=== PATIENT | male | born 1955 | race Caucasian/White ===

== ENCOUNTER 2017-03-11 01:37 | Emergency (ER) ==
[2017-03-11 01:37] VITALS: BMI 23.1
[2017-03-11 02:01] VITALS: BP 157/91; TEMP 98.8
[2017-03-11] MEDS ORDERED: CLEOCIN 600 MG in SODIUM CHLORIDE 100 ML IV STA (02:16)
[2017-03-11] MEDS ORDERED: ZANTAC PO STA (02:17)
[2017-03-11 02:27] LABS: BASOPHILS % (AUTO) 0.4 % (0.0-3.0); EOSINOPHILS # (AUTO) 0.2 K/ul (0.0-0.7); EOSINOPHILS % (AUTO) 1.9 % (0.0-7.0); HEMATOCRIT 38.9 % (42.0-52.0); HEMOGLOBIN 12.6 g/dl (14.0-18.0); IMMATURE GRANULOCYTE % (AUTO) 0.4 % (0.0-5.0); LYMPHOCYTES # (AUTO) 2.2 K/uL (0.60-3.4); LYMPHOCYTES % (AUTO) 27.6 (10.0-50.0); MEAN CORPUSCULAR HEMOGLOBIN 24.1 pg (27.0-31.0); MEAN CORPUSCULAR HGB CONC 32.4 (31.8-35.4); MEAN CORPUSCULAR VOLUME 74.4 fl (80.0-94.0); MONOCYTES # (AUTO) 0.7 K/uL (0.4-2.0); MONOCYTES % (AUTO) 9.2 (0-10); NEUTROPHILS # (AUTO) 4.9 K/ul (2.0-6.9); NEUTROPHILS % (AUTO) 60.5; PLATELET COUNT 311 10^3/uL (140-440); RED BLOOD COUNT 5.23 10^6/ul (4.70-6.10); WHITE BLOOD COUNT 8.01 K/ul (4.2-10.2)
[2017-03-11] MEDS ORDERED: CLEOCIN ONE ×2 (02:35→05:51)
[2017-03-11 02:44] LABS: BILIRUBIN,URINE 1+ (NEGATIVE); KETONES,URINE Negative (NEGATIVE); LEUKOCYTE ESTERASE ,URINE Negative (NEGATIVE); NITRITE,URINE Negative (NEGATIVE); PH,URINE 5.5 (5-9); PROTEIN,URINE 2+ (NEGATIVE); URINE, BLOOD 3+ (NEGATIVE)
[2017-03-11 02:50] LABS: ADD URINE MICROSCOPIC YES
[2017-03-11 03:06] LABS: ALBUMIN 3.5 g/dL (3.4-5.0); ALBUMIN/GLOBULIN RATIO 1.06; ANION GAP 12.8; BILIRUBIN,TOTAL 0.44 mg/dL (0.00-1.20); BUN/CREATININE RATIO 12.24; CALCIUM 9.1 mg/dL (8.2-10.2); CREATININE 1.47 mg/dL (0.60-1.10); POTASSIUM 3.8 mmol/L (3.5-5.1); TOTAL PROTEIN 6.8 g/dL (5.8-8.1)
--- NOTE | 2017-03-11 03:55 | CT ---
EXAM: CT abdomen pelvis without intravenous contrast 03/11/2017. Sagittal and coronal reformatted images HISTORY: Hematuria COMPARISON: 02/20/2014 FINDINGS: The previously described hepatic cysts appear stable. The liver shows no acute abnormalit y. The gallbladder has been removed. The adrenal glands and kidneys show no acute abnormality. Nonobstructive nephrolithiasis measures u p to 3 mm diameter. No hydronephrosis. No obstructing ureteral stone. Unremarkable urinary bladder. The spleen and pancreas show no acute abnormality. The bowel obstruction. Appendix not identified. No secondary signs of appendicitis. No free air or free fluid. IMPRESSION: No acute inflammatory process identified within the abdomen or pelvis within the limita tion of a noncontrast enhanced examination.
--- NOTE | 2017-03-11 06:07 | ED.PDOC ---
General ED Provider: Dr. NELSON JO-ER Chief Complaint: Extremity Swelling/Pain Stated Complaint: my legs are swollen=--thsi has happened befoere Time Seen by Physician: 01:40 Mode of Arrival: Walk-In Information Source: Patient Exam Limitations: No limitations Primary Care Provider: AXEL GAUTAM Nursing and Triage Documentation Reviewed and Agree: Yes Skin Complaint Exam - Skin/Soft Tissue Complaint/Exam Onset/Duration: several days Symptoms Are: Still present Initial Severity: Mild Current Severity: Mild Location: bilateral legs Character: Reports: Redness, Swelling. Denies: Raised, Painful Aggravating: Reports: None Alleviating: Reports: None Associated Signs and Symptoms: Reports: Red streaks. Denies: Fever, Chills, Itching, Drainage, Bruising, Tenderness, Joint swelling Related History: Reports: Similar episode Related Surgical History: Reports: None Recent Exposure to Others w/Similar Symptoms: No Skin Findings: Present: Erythema Differential Diagnoses: Cellulitis, Other Review of Systems - Review Of Systems Constitutional: Reports: No symptoms Eyes: Reports: No symptoms Ears, Nose, Mouth, Throat: Reports: No symptoms Respiratory: Reports: No symptoms Cardiac: Reports: No symptoms GI: Reports: No symptoms : Reports: No symptoms Musculoskeletal: Reports: No symptoms Skin: Reports: Rash Neurological: Reports: No symptoms Endocrine: Reports: No symptoms Hematologic/Lymphatic: Reports: No symptoms All Other Systems: Reviewed and Negative Past Medical History - Past Medical History Previously Healthy: Yes Endocrine: Reports: None Cardiovascular: Reports: None Respiratory: Reports: None Hematological: Reports: None Gastrointestinal: Reports: GERD Genitourinary: Reports: None Neuro/Psych: Reports: Anxiety, Depression Musculoskeletal: Reports: None Cancer: Reports: None - Surgical History General Surgical History: Reports: Cholecystectomy, Other (stretched esophagus x3 cataracts ) - Family History Family History: Reports: Unknown - Social History Smoking Status: Never smoker Hx Substance Use: No Alcohol Screening: None Lives: With family - Immunizations Tetanus Shot up to Date: Yes Physical Exam - Physical Exam Appearance: Well-appearing, No pain distress, Well-nourished Eyes: TRISHA, EOMI, Conjunctiva clear ENT: Ears normal, Nose normal, Oropharynx normal Neck: Supple Respiratory: Airway patent, Breath sounds clear, Breath sounds equal, Respirations nonlabored Cardiovascular: RRR, Pulses normal, No rub, No murmur GI/: Soft, Nontender, No masses, Bowel sounds normal, No Organomegaly Musculoskeletal: Normal strength, ROM intact, No edema, No calf tenderness Skin: Warm, Dry, Normal color Neurological: Sensation intact, Motor intact, Reflexes intact, Cranial nerves intact, Alert, Oriented Psychiatric: Affect appropriate, Mood appropriate Interpretation - Radiology Interpretation Radiology Interpretation By: Radiologist Exam Interpreted: CT Scan Critical Care Note - Critical Care Note Total Time (mins): 0 Course - Course Hematology/Chemistry: 03/11/17 02:20 03/11/17 02:20 Orders, Labs, Meds: Lab Review 03/11/17 03/11/17 02:20 02:40 WBC 8.01 RBC 5.23 Hgb 12.6 L Hct 38.9 L MCV 74.4 L MCH 24.1 L MCHC 32.4 RDW Coeff of [place] 17.2 H Plt Count 311 Immature Gran % (Auto) 0.4 Neut % (Auto) 60.5 Lymph % (Auto) 27.6 [place] % (Auto) 9.2 Eos % (Auto) 1.9 Baso % (Auto) 0.4 Immature Gran # (Auto) 0.0 Neut # 4.9 Lymph # 2.2 [place] # 0.7 Eos # 0.2 Baso # 0.0 D-Dimer (Manual) 715.44 Sodium 138 Potassium 3.8 Chloride 105 Carbon Dioxide 24 Anion Gap 12.8 BUN 18 Creatinine 1.47 H Estimated GFR (MDRD) 49.00 BUN/Creatinine Ratio 12.24 Glucose 109 Calcium 9.1 Total Bilirubin 0.44 AST 33 ALT 27 Alkaline Phosphatase 93 Total Protein 6.8 Albumin 3.5 Globulin 3.3 Albumin/Globulin Ratio 1.06 TSH 3.345 Urine Color Dark Urine Clarity Cloudy Urine pH 5.5 Ur Specific [place] >=1.030 Urine Protein 2+ Urine Glucose (UA) Trace Urine Ketones Negative Urine Blood 3+ Urine Nitrite Negative Urine Bilirubin 1+ Urine Urobilinogen 0.2 Ur Leukocyte Esterase Negative Urine Microscopic RBC 50-100 Urine Microscopic WBC 2-5 Ur Squamous Epith Cells Not present Urine Mucus Trace Orders Category Date Time Status Bladder [ED BLADDER SCAN] .ONCE EMERGENCY 03/11/17 03:15 Active IV [ED IV/MEDIPORT/POWERPORT] .ONCE EMERGENCY 03/11/17 02:16 Active BLOOD CULTURE Stat LAB 03/11/17 02:20 Received CBC W/ AUTO DIFF Stat LAB 03/11/17 02:20 Completed COMPREHENSIVE METABOLIC PANEL Stat LAB 03/11/17 02:20 Completed D-DIMER Stat LAB 03/11/17 02:20 Completed TSH [THYROID STIMULATING HORMONE] Stat LAB 03/11/17 02:20 Completed URINALYSIS C & S IF INDICATED Stat LAB 03/11/17 02:40 Completed 0.9 % Sodium Chloride [Saline Flush] MEDS 03/11/17 02:16 Ordered 1 syr IVF PRN PRN Clindamycin Phosphate Inj [Cleocin] MEDS 03/11/17 02:35 Discontinued 300 mg .ROUTE .STK-MED ONE Clindamycin Phosphate Inj [Cleocin] MEDS 03/11/17 05:51 Discontinued 300 mg .ROUTE .STK-MED ONE Clindamycin Phosphate Inj [Cleocin] 600 mg MEDS 03/11/17 02:16 Discontinued 0.9 % Sodium Chloride [Sodium Chloride] 100 ml IV NOW Ranitidine HCl [Zantac] MEDS 03/11/17 02:17 Discontinued 150 mg PO ONCE STA CT ABDOMEN/PELVIS WO CONTRAST Stat RADS 03/11/17 03:19 Completed Medications Generic Name Dose Route Start Last Admin Trade Name Freq PRN Reason Stop Dose Admin Sodium Chloride 1 syr 03/11/17 02:16 03/11/17 02:55 Saline Flush IVF 1 syr PRN PRN Administration To flush IV Discontinued Medications Generic Name Dose Route Start Last Admin Trade Name Freq PRN Reason Stop Dose Admin Clindamycin Phosphate 600 mg/ 104 mls @ 100 mls/hr 03/11/17 02:16 03/11/17 02 :54 Sodium Chloride IV 03/11/17 03:18 100 mls/hr NOW STA Administration Ranitidine HCl 150 mg 03/11/17 02:17 03/11/17 02:47 Zantac PO 03/11/17 02:18 150 mg ONCE STA Administration Vital Signs: Temp Pulse Resp BP Pulse Ox 03/11/17 01:38 98.8 F 70 18 157/91 H 98 Departure - Departure Time of Disposition: 06:07 Disposition: HOME SELF-CARE Discharge Problem: Edema of lower extremity, CKD (chronic kidney disease) stage 3, GFR 30-59 ml/ min Proteinuria Qualifiers: Proteinuria type: other Qualifier Code: (R80.8) Other proteinuria Hematuria Qualifiers: Hematuria type: unspecified type Qualifier Code: (R31.9) Hematuria, unspecified Instructions: Hematuria (ED) Condition: Good Pt referred to PMD for follow-up: Yes Additional Instructions: keflex 500mg qid x 7 anita--sean you have blood and protein in your urine--you need to see a water sander and a urologist--have your doctor refer you Allergies/Adverse Reactions: Allergies No Known Allergies Allergy (Verified 03/11/17 01:50) Home Medications: Ambulatory Orders Citalopram Hydrobromide [Citalopram HBr] 20 mg PO DAILY 02/20/14 Ranitidine HCl 300 mg PO BID 02/20/14 Naproxen 500 mg PO BID 09/07/15 Disposition Discussed With: Patient
== END 2017-03-11 06:24 | disposition home or self-care (01) ==
LOC: ED 01:37
DX: R60.0 Localized edema (principal); N18.3 Chronic kidney disease, stage 3 (moderate); R80.8 Other proteinuria; R31.9 Hematuria, unspecified
CPT/HCPCS: 36415; 80053; 81001; 84443; 85025; 85379; 87040; 96365; 99283

== ENCOUNTER 2021-11-27 07:49 | Inpatient (IN) ==
[2021-11-27] MEDS ORDERED: SODIUM CHLORIDE 1,000 ML IV STA ×2 (07:55→09:01)
[2021-11-27] MEDS ORDERED: ZOFRAN 4 MG/2 ML IVP ONE (07:55)
--- NOTE | 2021-11-27 08:00 | ED.PDOC ---
General ED Provider: Dr. NICOLE TOWNSEND MD Chief Complaint: Weakness Stated Complaint: mild to mod general weakness for one day, no injury, +nausea, no emesis, no chest pain, hx gerd and covid vaccine, no dm, mi or htn Time Seen by Provider: 11/27/21 07:54 Primary Care Provider: AXEL GAUTAM Nursing and Triage Documentation Reviewed and Agree: Yes Does patient meet sepsis criteria?: No System Inflammatory Response Syndrome: Not Applicable Sepsis Protocol: For patient's 13 years and over: Temp is 96.8 and below OR 101 and greater Pulse >90 BPM Resp >20/minute Acutely Altered Mental Status Are patient's symptoms suggestive of a new infection, such as: -Pneumonia -Skin, Soft Tissue -Endocarditis -UTI -Bone, Joint Infection -Implantable Device -Acute Abdominal Infection -Wound Infection -Meningitis -Blood Stream Catheter Infection -Unknown Review of Systems Review Of Systems Constitutional: Reports Malaise; Denies Fever Eyes: Denies Vision change Ears, Nose, Mouth, Throat: Denies Throat pain Respiratory: Denies Short of air Cardiac: Denies Chest pain GI: Denies Abdominal pain : Denies Dysuria Musculoskeletal: Denies Back pain Skin: Denies Bruising Neurological: Denies Cognitive dysfunction All Other Systems: Other [facility] Social History Smoking and tobacco status: Never smoker Substance use type: does not use Physical Exam Physical Exam Appearance: Reports No pain distress Ill-appearing: None Pain Distress: None Eyes: Reports TRISHA, EOMI and Conjunctiva clear ENT: Reports Oropharynx normal Neck: Supple Respiratory: Reports Airway patent, Breath sounds clear and Breath sounds equal Cardiovascular: Reports RRR GI/: Reports Soft and Nontender Musculoskeletal: Reports ROM intact Skin: Reports Warm and Dry Neurological: Reports Alert and Oriented Psychiatric: Reports Affect appropriate Interpretation Radiology Interpretation Radiology Interpretation By: Radiologist Exam Interpreted: CXR Xray Comments: nap EKG Interpretation Time of EKG #1: 11:28 Rate: Tachy Rhythm: Sinus Interpretation: nsst, no stemi Critical Care Note Critical Care Note Total Critical Care Time (mins): 0 Course Course Hematology/Chemistry: 11/27/21 08:09 11/27/21 08:09 Orders, Labs, Meds: Lab Review 11/27/21 11/27/21 11/27/21 08:04 08:09 08:09 WBC 16.81 H RBC 6.94 H Hgb 12.7 L Hct 43.6 MCV 62.8 L MCH 18.3 L MCHC 29.1 L RDW Coeff of [place] 20.8 H Plt Count 464 H Immature Gran % (Auto) 0.4 Neut % (Auto) 84.0 H Lymph % (Auto) 9.2 L [place] % (Auto) 6.1 Eos % (Auto) 0.1 Baso % (Auto) 0.2 Neut # (Auto) 14.1 H Lymph # (Auto) 1.5 [place] # (Auto) 1.0 Eos # (Auto) 0.0 Baso # (Auto) 0.0 Immature Gran # (Auto) 0.1 Sodium 136.8 Potassium 4.26 Chloride 101.5 Carbon Dioxide 20.6 L Anion Gap 18.96 BUN 21.3 H Creatinine 2.32 H Estimated GFR (MDRD) 28.00 BUN/Creatinine Ratio 9.18 Glucose 199.2 H Lactic Acid Calcium 9.49 Total Bilirubin 1.01 AST 30.3 ALT 25.3 Alkaline Phosphatase 134.9 H Total Creatine Kinase CK-MB (CK-2) CK-MB (CK-2) % Troponin I < 0.012 Total Protein 9.10 H Albumin 5.10 H Globulin 4.00 Albumin/Globulin Ratio 1.27 Urine Color Urine Clarity Urine pH Ur Specific [place] Urine Protein Urine Glucose (UA) Urine Ketones Urine Blood Urine Nitrite Urine Bilirubin Urine Urobilinogen Ur Leukocyte Esterase Ur Squamous Epith Cells Hyaline Casts Urine Mucus Urine Opiates Screen Ur Oxycodone Screen Urine Methadone Screen Ur Propoxyphene Screen Ur Barbiturates Screen U Tricyclic Antidepress Ur Phencyclidine Scrn Ur Amphetamine Screen U Methamphetamines Scrn U Benzodiazepines Scrn Urine Cocaine Screen U Cannabinoids Screen Influ A Molecular Assay Negative by naat Influ B Molecular Assay Negative by naat SARS CoV-2 RNA Rapid FILEMON 11/27/21 11/27/21 11/27/21 08:09 08:09 09:11 WBC RBC Hgb Hct MCV MCH MCHC RDW Coeff of [place] Plt Count Immature Gran % (Auto) Neut % (Auto) Lymph % (Auto) [place] % (Auto) Eos % (Auto) Baso % (Auto) Neut # (Auto) Lymph # (Auto) [place] # (Auto) Eos # (Auto) Baso # (Auto) Immature Gran # (Auto) Sodium Potassium Chloride Carbon Dioxide Anion Gap BUN Creatinine Estimated GFR (MDRD) BUN/Creatinine Ratio Glucose Lactic Acid 2.54 H Calcium Total Bilirubin AST ALT Alkaline Phosphatase Total Creatine Kinase 206.3 H CK-MB (CK-2) 2.070 CK-MB (CK-2) % 1.0000 Troponin I Total Protein Albumin Globulin Albumin/Globulin Ratio Urine Color Urine Clarity Urine pH Ur Specific [place] Urine Protein Urine Glucose (UA) Urine Ketones Urine Blood Urine Nitrite Urine Bilirubin Urine Urobilinogen Ur Leukocyte Esterase Ur Squamous Epith Cells Hyaline Casts Urine Mucus Urine Opiates Screen Ur Oxycodone Screen Urine Methadone Screen Ur Propoxyphene Screen Ur Barbiturates Screen U Tricyclic Antidepress Ur Phencyclidine Scrn Ur Amphetamine Screen U Methamphetamines Scrn U Benzodiazepines Scrn Urine Cocaine Screen U Cannabinoids Screen Influ A Molecular Assay Influ B Molecular Assay SARS CoV-2 RNA Rapid FILEMON Negative 11/27/21 11/27/21 09:17 09:17 WBC RBC Hgb Hct MCV MCH MCHC RDW Coeff of [place] Plt Count Immature Gran % (Auto) Neut % (Auto) Lymph % (Auto) [place] % (Auto) Eos % (Auto) Baso % (Auto) Neut # (Auto) Lymph # (Auto) [place] # (Auto) Eos # (Auto) Baso # (Auto) Immature Gran # (Auto) Sodium Potassium Chloride Carbon Dioxide Anion Gap BUN Creatinine Estimated GFR (MDRD) BUN/Creatinine Ratio Glucose Lactic Acid Calcium Total Bilirubin AST ALT Alkaline Phosphatase Total Creatine Kinase CK-MB (CK-2) CK-MB (CK-2) % Troponin I Total Protein Albumin Globulin Albumin/Globulin Ratio Urine Color [place] Urine Clarity Slightly Urine pH 5.5 Ur Specific [place] >=1.030 Urine Protein 2+ H Urine Glucose (UA) 1+ H Urine Ketones 1+ H Urine Blood Negative Urine Nitrite Negative Urine Bilirubin 2+ H Urine Urobilinogen 0.2 Ur Leukocyte Esterase Negative Ur Squamous Epith Cells Not Reportable Hyaline Casts 10-20 Urine Mucus 3+ Urine Opiates Screen Negative Ur Oxycodone Screen Negative Urine Methadone Screen Negative Ur Propoxyphene Screen Negative Ur Barbiturates Screen Negative U Tricyclic Antidepress Negative Ur Phencyclidine Scrn Negative Ur Amphetamine Screen Negative U Methamphetamines Scrn Negative U Benzodiazepines Scrn Negative Urine Cocaine Screen Negative U Cannabinoids Screen Negative Influ A Molecular Assay Influ B Molecular Assay SARS CoV-2 RNA Rapid FILEMON Orders Category Date Time Status EKG-(ED ONLY) Stat CARDIO 11/27/21 07:55 Completed BLOOD CULTURE Stat LAB 11/27/21 09:25 Received CBC W/ AUTO DIFF Stat LAB 11/27/21 08:09 Completed CMP [COMPREHENSIVE METABOLIC PANEL] Stat LAB 11/27/21 08:09 Completed COVID [SARS COV-2 RNA RAPID FILEMON] Stat LAB 11/27/21 09:11 Completed CPK [CREATINE KINASE] Stat LAB 11/27/21 08:09 Completed DRUG SCREEN, URINE, RAPID Stat LAB 11/27/21 09:17 Completed LACTIC ACID Stat LAB 11/27/21 08:09 Completed MOLECULAR FLU A & B [FLU A/B MOLECULAR] Stat LAB 11/27/21 08:04 Completed TROPONIN I Stat LAB 11/27/21 08:09 Completed URINALYSIS C & S IF INDICATED Stat LAB 11/27/21 09:17 Completed Ondansetron HCl/Pf [Zofran 4 mg/2 ml] MEDS 11/27/21 07:55 Discontinued 4 mg IVP ONCE ONE Pantoprazole Sodium [Protonix IV] MEDS 11/27/21 11:07 Discontinued 40 mg IVP ONCE ONE Piperacillin Sodium/Tazobactam [Zosyn 3.375 gm] 3.375 MEDS 11/27/21 09:01 Discontinued gm 0.9 % Sodium Chloride [Sodium Chloride] 50 ml IV ONCE Sodium Chloride 0.9% [Sodium Chloride] 1,000 ml MEDS 11/27/21 07:55 Discontinued IV BOLUS Sodium Chloride 0.9% [Sodium Chloride] 1,000 ml MEDS 11/27/21 09:01 Discontinued IV BOLUS CHEST, 1V AP ONLY Stat RADS 11/27/21 07:55 Completed Medications Discontinued Medications Generic Name Dose Route Start Last Admin Trade Name Freq PRN Reason Stop Dose Admin Sodium Chloride 1,000 mls @ 1,000 mls/hr 11/27/21 07:55 11/27/21 08:48 Sodium Chloride IV 11/27/21 08:54 1,000 mls/hr BOLUS STA Administration Sodium Chloride 1,000 mls @ 1,000 mls/hr 11/27/21 09:01 11/27/21 10:01 Sodium Chloride IV 11/27/21 10:00 1,000 mls/hr BOLUS STA Administration Piperacillin Sod/Tazobactam 50 mls @ 50 mls/hr 11/27/21 09:01 11/27/21 10:01 Sod 3.375 gm/ Sodium Chloride IV 11/27/21 10:00 50 mls/hr ONCE ONE Administration Ondansetron HCl 4 mg 11/27/21 07:55 11/27/21 08:49 Ondansetron Hcl/Pf 4 Mg/2 Ml Sdv IVP 11/27/21 07:56 4 mg ONCE ONE Administration Pantoprazole Sodium 40 mg 11/27/21 11:07 Pantoprazole Sodium 40 Mg Vial IVP 11/27/21 11:08 ONCE ONE Vital Signs: Temp Pulse Resp BP Pulse Ox 11/27/21 07:50 97.8 F 109 H 17 135/86 97 Discharge Plan Discharge Patient Disposition: ADMITTED INPATIENT Discharge Problem: Rhabdomyolysis, Weakness, Dehydration Prescriptions: No Action omeprazole [Prilosec] 20 mg Capsule,Delayed Release(Dr/Ec) 20 mg PO DAILY 0RF ED Provider: NICOLE TOWNSEND Condition: Fair Physician Progress Note: []differential includes dehydration, viral syndrome, mild rhabdomyolysis, sepsis, pt admit to tele inpatient to hospitalist
[2021-11-27 08:24] LABS: BASOPHILS % (AUTO) 0.2 % (0.0-3.0); EOSINOPHILS % (AUTO) 0.1 % (0.0-7.0); HEMATOCRIT 43.6 % (42.0-52.0); HEMOGLOBIN 12.7 g/dl (14.0-18.0); IMMATURE GRANULOCYTE # (AUTO) 0.1 (0.0-1.0); IMMATURE GRANULOCYTE % (AUTO) 0.4 % (0.0-5.0); LYMPHOCYTES # (AUTO) 1.5 K/uL (0.60-3.4); LYMPHOCYTES % (AUTO) 9.2 (10.0-50.0); MEAN CORPUSCULAR HEMOGLOBIN 18.3 pg (27.0-31.0); MEAN CORPUSCULAR HGB CONC 29.1 (31.8-35.4); MEAN CORPUSCULAR VOLUME 62.8 fl (80.0-94.0); MONOCYTES % (AUTO) 6.1 (0-10); NEUTROPHILS # (AUTO) 14.1 K/ul (2.0-6.9); PLATELET COUNT 464 10^3/uL (140-440); RDW COEFFICIENT OF VARIATION 20.8 % (11.6-14.8); RED BLOOD COUNT 6.94 10^6/ul (4.70-6.10); WHITE BLOOD COUNT 16.81 K/ul (4.2-10.2)
[2021-11-27 08:35] LABS: ALANINE AMINOTRANSFERASE 25.3 U/L (0-50); ALKALINE PHOSPHATASE 134.9 U/L (56-119); ASPARTATE AMINO TRANSFERASE 30.3 U/L (17-59); BILIRUBIN,TOTAL 1.01 mg/dL (0.2-1.3); BLOOD UREA NITROGEN 21.3 mg/dL (9-20); CALCIUM 9.49 mg/dL (8.4-10.2); CARBON DIOXIDE 20.6 mmol/L (22-30.0); CHLORIDE 101.5 mmol/L (98-107); CREATININE 2.32 mg/dL (0.60-1.10); GLUCOSE 199.2 mg/dL (74-106); POTASSIUM 4.26 mmol/L (3.5-5.1); SODIUM 136.8 mmol/L (134.5-145)
[2021-11-27 08:49] LABS: TROPONIN I < 0.012 ng/ml (0.0000-0.120)
--- NOTE | 2021-11-27 08:53 | DI ---
EXAM: One-view chest HISTORY: Weak TECHNIQUE: Single frontal view the chest was obtained. FINDINGS: The heart is normal size. Lungs are clear. The costophrenic as a sharp. The osseous str uctures and mediastinal contours are normal. IMPRESSION: No active cardiopulmonary disease.
[2021-11-27 08:55] LABS: CREATINE KINASE 206.3 U/L (55-170)
[2021-11-27 08:57] LABS: MOLECULAR FLU A NEGATIVE BY NAAT (NEGATIVE); MOLECULAR FLU B NEGATIVE BY NAAT (NEGATIVE)
[2021-11-27] MEDS ORDERED: ZOSYN 3.375 GM 3.375 GM in SODIUM CHLORIDE 50 ML IV ONE (09:01)
[2021-11-27 09:11] LABS: CREATINE KINASE MB 2.07 ng/ml (0.0-2.38)
[2021-11-27 09:43] LABS: BILIRUBIN,URINE 2+ (NEGATIVE); CLARITY,URINE Slightly (CLEAR); COLOR,URINE Orange (YELLOW); GLUCOSE, URINE (UA) 1+ (NEGATIVE); KETONES,URINE 1+ (NEGATIVE); LEUKOCYTE ESTERASE ,URINE Negative (NEGATIVE); NITRITE,URINE Negative (NEGATIVE); PH,URINE 5.5 (5-9); PROTEIN,URINE 2+ (NEGATIVE); URINE, BLOOD Negative (NEGATIVE); UROBILINOGEN,URINE 0.2 (0.2)
[2021-11-27 10:03] LABS: AMPHETAMINE SCREEN,URINE NEGATIVE (NEGATIVE); BARBITURATE SCREEN,URINE NEGATIVE (NEGATIVE); METHAMPHETAMINES SCREEN,URINE NEGATIVE (NEGATIVE); OPIATE SCREEN,URINE NEGATIVE (NEGATIVE); PHENCYCLIDINE SCREEN,URINE NEGATIVE (NEGATIVE)
[2021-11-27 10:04] LABS: BENZODIAZEPINES SCREEN,URINE NEGATIVE (NEGATIVE); CANNABINOID SCREEN,URINE NEGATIVE (NEGATIVE); COCAIN SCREEN,URINE NEGATIVE (NEGATIVE); METHADONE URINE SCREEN NEGATIVE (NEGATIVE); OXYCODONE URINE SCREEN NEGATIVE (NEGATIVE); PROPOXYPHENE URINE SCREEN NEGATIVE (NEGATIVE); TRICYCLIC ANTIDEPRESSANTS URIN NEGATIVE (NEGATIVE)
[2021-11-27 10:05] LABS: MUCUS,URINE 3+ (NOT PRESENT)
[2021-11-27] MEDS ORDERED: PROTONIX IV IVP ONE (11:07)
[2021-11-27] MEDS ORDERED: TYLENOL PO PRN (11:31)
[2021-11-27] MEDS: SODIUM CHLORIDE 1,000 ML IV SCH ×2 (12:36→14:10)
[2021-11-27 13:35] VITALS: BMI 25.9
[2021-11-27] MEDS: ZOSYN 3.375 GM 3.375 GM in SODIUM CHLORIDE 50 ML IV SCH ×2 (17:22→23:16)
[2021-11-27 17:49] LABS: CREATINE KINASE 411.1 U/L (55-170)
[2021-11-27 18:03] LABS: TROPONIN I < 0.012 ng/ml (0.0000-0.120)
[2021-11-28 02:08] LABS: BASOPHILS # (AUTO) 0.1 K/uL (0-0.2); BASOPHILS % (AUTO) 0.5 % (0.0-3.0); EOSINOPHILS # (AUTO) 0.2 K/ul (0.0-0.7); EOSINOPHILS % (AUTO) 1.5 % (0.0-7.0); HEMATOCRIT 33.7 % (42.0-52.0); HEMOGLOBIN 10.1 g/dl (14.0-18.0); IMMATURE GRANULOCYTE # (AUTO) 0.1 (0.0-1.0); IMMATURE GRANULOCYTE % (AUTO) 0.4 % (0.0-5.0); LYMPHOCYTES # (AUTO) 2.2 K/uL (0.60-3.4); LYMPHOCYTES % (AUTO) 16.7 (10.0-50.0); MEAN CORPUSCULAR HEMOGLOBIN 18.7 pg (27.0-31.0); MEAN CORPUSCULAR VOLUME 62.4 fl (80.0-94.0); MONOCYTES # (AUTO) 1.3 K/uL (0.4-2.0); MONOCYTES % (AUTO) 10.1 (0-10); NEUTROPHILS # (AUTO) 9.3 K/ul (2.0-6.9); NEUTROPHILS % (AUTO) 70.8 % (42.2-75.2); PLATELET COUNT 338 10^3/uL (140-440); RDW COEFFICIENT OF VARIATION 19.5 % (11.6-14.8); WHITE BLOOD COUNT 13.16 K/ul (4.2-10.2)
[2021-11-28 02:12] LABS: ALANINE AMINOTRANSFERASE 18.6 U/L (0-50); ALBUMIN 4.02 g/dL (3.5-5.0); ALKALINE PHOSPHATASE 88.4 U/L (56-119); ASPARTATE AMINO TRANSFERASE 28.2 U/L (17-59); BILIRUBIN,TOTAL 0.77 mg/dL (0.2-1.3); BLOOD UREA NITROGEN 25.5 mg/dL (9-20); CALCIUM 7.99 mg/dL (8.4-10.2); CARBON DIOXIDE 23.8 mmol/L (22-30.0); CHLORIDE 105.3 mmol/L (98-107); CREATINE KINASE 585.9 U/L (55-170); CREATININE 2.19 mg/dL (0.60-1.10); GLUCOSE 163.5 mg/dL (74-106); POTASSIUM 4.47 mmol/L (3.5-5.1); SODIUM 136.2 mmol/L (134.5-145); TOTAL PROTEIN 7.26 g/dL (6.3-8.2)
[2021-11-28 02:25] LABS: TROPONIN I < 0.012 ng/ml (0.0000-0.120)
[2021-11-28] MEDS: SODIUM CHLORIDE 1,000 ML IV SCH (03:35)
[2021-11-28 05:18] VITALS: BP 121/66; TEMP 98.1
[2021-11-28] MEDS: ZOSYN 3.375 GM 3.375 GM in SODIUM CHLORIDE 50 ML IV SCH (05:32)
[2021-11-28] MEDS ORDERED: PRILOSEC PO SCH (06:30)
[2021-11-28] MEDS ORDERED: LOVENOX SUBCUT SCH (09:00)
[2021-11-28] MEDS ORDERED: PROTONIX IV IVP SCH (09:00)
--- NOTE | 2021-11-29 05:49 | PCM.DC ---
Final Diagnosis: Dehydration - resolved. Physical Exam Appearance: Well-appearing Ill-appearing: None Pain Distress: None Eyes: TRISHA ENT: Oropharynx normal Respiratory: Airway patent and Breath sounds clear Cardiovascular: RRR and Pulses normal GI/: Soft and Nontender Musculoskeletal: Normal strength and ROM intact Skin: Warm and Dry Neurological: Sensation intact, Motor intact and Alert Psychiatric: Affect appropriate and Mood appropriate (1) Dehydration: Status: Acute Code(s): E86.0 - Dehydration SNOMED Code(s): 57793033 Reason for Hospitalization: Not feeling well, reduced intake, developed mild dehydration. Prognosis/Condition at Discharge: Stable, good. Medications at Discharge: Ambulatory Orders Medication Instructions Recorded omeprazole 20 mg capsule,delayed 20 mg PO DAILY 11/27/21 release Lab/Diagnostics: Laboratory Tests 11/27/21 11/27/21 11/27/21 08:04 08:09 08:09 WBC 16.81 H RBC 6.94 H Hgb 12.7 L Hct 43.6 MCV 62.8 L MCH 18.3 L MCHC 29.1 L RDW Coeff of [place] 20.8 H Plt Count 464 H Immature Gran % (Auto) 0.4 Neut % (Auto) 84.0 H Lymph % (Auto) 9.2 L [place] % (Auto) 6.1 Eos % (Auto) 0.1 Baso % (Auto) 0.2 Neut # (Auto) 14.1 H Lymph # (Auto) 1.5 [place] # (Auto) 1.0 Eos # (Auto) 0.0 Baso # (Auto) 0.0 Immature Gran # (Auto) 0.1 Sodium 136.8 Potassium 4.26 Chloride 101.5 Carbon Dioxide 20.6 L Anion Gap 18.96 BUN 21.3 H Creatinine 2.32 H Estimated GFR (MDRD) 28.00 BUN/Creatinine Ratio 9.18 Glucose 199.2 H Lactic Acid Calcium 9.49 Total Bilirubin 1.01 AST 30.3 ALT 25.3 Alkaline Phosphatase 134.9 H Total Creatine Kinase CK-MB (CK-2) CK-MB (CK-2) % Troponin I < 0.012 Total Protein 9.10 H Albumin 5.10 H Globulin 4.00 Albumin/Globulin Ratio 1.27 Urine Color Urine Clarity Urine pH Ur Specific [place] Urine Protein Urine Glucose (UA) Urine Ketones Urine Blood Urine Nitrite Urine Bilirubin Urine Urobilinogen Ur Leukocyte Esterase Ur Squamous Epith Cells Hyaline Casts Urine Mucus Urine Opiates Screen Ur Oxycodone Screen Urine Methadone Screen Ur Propoxyphene Screen Ur Barbiturates Screen U Tricyclic Antidepress Ur Phencyclidine Scrn Ur Amphetamine Screen U Methamphetamines Scrn U Benzodiazepines Scrn Urine Cocaine Screen U Cannabinoids Screen Influ A Molecular Assay Negative by naat Influ B Molecular Assay Negative by naat SARS CoV-2 RNA Rapid FILEMON 11/27/21 11/27/21 11/27/21 08:09 08:09 09:11 WBC RBC Hgb Hct MCV MCH MCHC RDW Coeff of [place] Plt Count Immature Gran % (Auto) Neut % (Auto) Lymph % (Auto) [place] % (Auto) Eos % (Auto) Baso % (Auto) Neut # (Auto) Lymph # (Auto) [place] # (Auto) Eos # (Auto) Baso # (Auto) Immature Gran # (Auto) Sodium Potassium Chloride Carbon Dioxide Anion Gap BUN Creatinine Estimated GFR (MDRD) BUN/Creatinine Ratio Glucose Lactic Acid 2.54 H Calcium Total Bilirubin AST ALT Alkaline Phosphatase Total Creatine Kinase 206.3 H CK-MB (CK-2) 2.070 CK-MB (CK-2) % 1.0000 Troponin I Total Protein Albumin Globulin Albumin/Globulin Ratio Urine Color Urine Clarity Urine pH Ur Specific [place] Urine Protein Urine Glucose (UA) Urine Ketones Urine Blood Urine Nitrite Urine Bilirubin Urine Urobilinogen Ur Leukocyte Esterase Ur Squamous Epith Cells Hyaline Casts Urine Mucus Urine Opiates Screen Ur Oxycodone Screen Urine Methadone Screen Ur Propoxyphene Screen Ur Barbiturates Screen U Tricyclic Antidepress Ur Phencyclidine Scrn Ur Amphetamine Screen U Methamphetamines Scrn U Benzodiazepines Scrn Urine Cocaine Screen U Cannabinoids Screen Influ A Molecular Assay Influ B Molecular Assay SARS CoV-2 RNA Rapid FILEMON Negative 11/27/21 11/27/21 11/27/21 09:17 09:17 17:35 WBC RBC Hgb Hct MCV MCH MCHC RDW Coeff of [place] Plt Count Immature Gran % (Auto) Neut % (Auto) Lymph % (Auto) [place] % (Auto) Eos % (Auto) Baso % (Auto) Neut # (Auto) Lymph # (Auto) [place] # (Auto) Eos # (Auto) Baso # (Auto) Immature Gran # (Auto) Sodium Potassium Chloride Carbon Dioxide Anion Gap BUN Creatinine Estimated GFR (MDRD) BUN/Creatinine Ratio Glucose Lactic Acid Calcium Total Bilirubin AST ALT Alkaline Phosphatase Total Creatine Kinase 411.1 H CK-MB (CK-2) 2.650 H CK-MB (CK-2) % 0.6400 Troponin I < 0.012 Total Protein Albumin Globulin Albumin/Globulin Ratio Urine Color [place] Urine Clarity Slightly Urine pH 5.5 Ur Specific [place] >=1.030 Urine Protein 2+ H Urine Glucose (UA) 1+ H Urine Ketones 1+ H Urine Blood Negative Urine Nitrite Negative Urine Bilirubin 2+ H Urine Urobilinogen 0.2 Ur Leukocyte Esterase Negative Ur Squamous Epith Cells Not Reportable Hyaline Casts 10-20 Urine Mucus 3+ Urine Opiates Screen Negative Ur Oxycodone Screen Negative Urine Methadone Screen Negative Ur Propoxyphene Screen Negative Ur Barbiturates Screen Negative U Tricyclic Antidepress Negative Ur Phencyclidine Scrn Negative Ur Amphetamine Screen Negative U Methamphetamines Scrn Negative U Benzodiazepines Scrn Negative Urine Cocaine Screen Negative U Cannabinoids Screen Negative Influ A Molecular Assay Influ B Molecular Assay SARS CoV-2 RNA Rapid FILEMON 11/28/21 11/28/21 01:50 01:50 WBC 13.16 H RBC 5.40 D Hgb 10.1 L Hct 33.7 L D MCV 62.4 L MCH 18.7 L MCHC 30.0 L RDW Coeff of [place] 19.5 H Plt Count 338 Immature Gran % (Auto) 0.4 Neut % (Auto) 70.8 Lymph % (Auto) 16.7 [place] % (Auto) 10.1 H Eos % (Auto) 1.5 Baso % (Auto) 0.5 Neut # (Auto) 9.3 H Lymph # (Auto) 2.2 [place] # (Auto) 1.3 Eos # (Auto) 0.2 Baso # (Auto) 0.1 Immature Gran # (Auto) 0.1 Sodium 136.2 Potassium 4.47 Chloride 105.3 Carbon Dioxide 23.8 Anion Gap 11.57 BUN 25.5 H Creatinine 2.19 H Estimated GFR (MDRD) 30.00 BUN/Creatinine Ratio 11.64 Glucose 163.5 H Lactic Acid Calcium 7.99 L Total Bilirubin 0.77 AST 28.2 ALT 18.6 Alkaline Phosphatase 88.4 D Total Creatine Kinase 585.9 H CK-MB (CK-2) 3.280 H CK-MB (CK-2) % 0.5500 Troponin I < 0.012 Total Protein 7.26 Albumin 4.02 Globulin 3.24 Albumin/Globulin Ratio 1.24 Urine Color Urine Clarity Urine pH Ur Specific [place] Urine Protein Urine Glucose (UA) Urine Ketones Urine Blood Urine Nitrite Urine Bilirubin Urine Urobilinogen Ur Leukocyte Esterase Ur Squamous Epith Cells Hyaline Casts Urine Mucus Urine Opiates Screen Ur Oxycodone Screen Urine Methadone Screen Ur Propoxyphene Screen Ur Barbiturates Screen U Tricyclic Antidepress Ur Phencyclidine Scrn Ur Amphetamine Screen U Methamphetamines Scrn U Benzodiazepines Scrn Urine Cocaine Screen U Cannabinoids Screen Influ A Molecular Assay Influ B Molecular Assay SARS CoV-2 RNA Rapid FILEMON Follow-ups: PCP within a week. Discharge Disposition: Home Hospital Course: Admit with mild dehyd. from poor oral intake. IVF and nausea med for a day, felt well and asked to be d/c this morning. Plan: D/C home.
== END 2021-11-28 10:11 | disposition home or self-care (01) | DRG 558 ==
LOC: ED 07:49 → MEDSURG A 12:25
PROVIDERS: ADMIT Emergency Medicine Emergency Medical Services; ATTEND Emergency Medicine
DX: M62.81 Muscle weakness (generalized); M62.82 Rhabdomyolysis; E86.0 Dehydration; R11.0 Nausea; Z20.822 Contact with and (suspected) exposure to COVID-19